=== PATIENT | female | born 1945 | race Caucasian/White ===

== ENCOUNTER → 2016-11-18 | Outpatient (CLI) | payer OTHER | LOC: FIMAGING 09:48 | PROVIDERS: ATTEND Family Medicine | DX: Z12.31 Encounter for screening mammogram for malignant neoplasm of breast (principal) | CPT/HCPCS: G0202 ==

== ENCOUNTER 2017-11-23 15:43 | Observation (INO) | payer OTHER ==
--- NOTE | 2017-11-23 16:12 | CPEKG ---
Heart Rate: 80 RR Interval: 750 P-R Interval: 188 QRSD Interval: 78 QT Interval: 344 QTC Interval: 397 P [place]: 46 QRS [place]: -2 T Wave [place]: 25 EKG Severity - NORMAL ECG - EKG Impression: SINUS RHYTHM Electronically Signed By: Starr Vu 23-Nov-2017 21:38:11
--- NOTE | 2017-11-23 16:17 | EDPHY ---
Addendum entered and electronically signed by Reinaldo Mg PAC 11/23/17 21:40 : This is a correction to first addendum. Dr. Zhao will provide consultation to the patient who is already admitted and in her bed on [address] [place] [address], not the emergency department. Addendum entered and electronically signed by Reinaldo Mg PAC 11/23/17 21:00 : 9:00 p.m. Notified by radiologist Dr. Gaston Diggs. We discussed the MRI findings. MRI brain is unremarkable. There is noted atrophy but no acute findings per Radiology. Cervical spine MRI does reveal C7 anterior wedge fracture as documented. At time of admission the patient was neurovascular intact. She was not in a C-collar because of this, but I have notified the hospitalist Dr. Bermeo. He will place the patient in a C-collar and I will discuss with Neurosurgery for consultation. 9:05 p.m. Case discussed with neurosurgeon Dr. Zhao. We discussed the patient's case and he will review her imaging and provide consultation in the emergency department. Original Note: General - History Smoking Status: Former smoker Time Seen by Provider: 11/23/17 16:03 Narrative: CHIEF COMPLAINT: difficult with speech HISTORY OF PRESENT ILLNESS: Patient complains of difficulty with her speech earlier today. This was at 11: 00 a.m.. She says she was trying to take a walk with her . She says that she "couldn't get the words out, and my said my lips looked funny. " She says she was aware of this but could not affects her speech. This lasted 15-20 minutes and then resolved. No chest pain. No headache. No fever or recent illness. She said she did fall and hit her head 10 days ago. She had some symptoms from this and has been taking ibuprofen and Tylenol. No headache preceding this. No neck pain or stiffness. No injury elsewhere. She had no chest pain at this time either. No previous TIA or CVA. She does not Recall if she has ever echocardiogram or No other associated complaints or modifying factors. REVIEW OF SYSTEMS: Ten systems reviewed and are negative unless otherwise noted in the HPI. PCP: Dr. Luli Grossman SPECIALISTS: Dr. Aponte PAST MEDICAL HISTORY: Celiac sprue, hypothyroid, fibromyalgia PAST SURGICAL HISTORY: No recent surgeries SOCIAL HISTORY: Quit smoking 44 years ago. No drug or alcohol use. Retired insurance worker FAMILY HISTORY: Noncontributory. No history of CVA in the family EXAMINATION General Appearance: Alert, no distress. Well-developed well-nourished Head: normocephalic, atraumatic Eyes: Pupils equal and round, no conjunctival pallor or injection. EOMS symmetric. No nystagmus or dysconjugate gaze ENT, Mouth: Mucous membranes moist. Uvula midline. Neck: Normal inspection, supple, non-tender Respiratory: Lungs are clear to auscultation. No wheezing, rhonchi or crackles Cardiovascular: Regular rate and rhythm. Systolic murmur. No JVD. Gastrointestinal: Abdomen is soft and nontender Back: non-tender, no bony abnormalities Neurological: GCS 15. A&O, nonfocal, strength is symmetric. No pronator drift. Normal finger to nose. NIH stroke scale is 0 Skin: Warm and dry, no rash. No petechiae Extremities: Nontender, no pedal edema Psychiatric: Mood and affect normal DIFFERENTIAL DIAGNOSES: Including but not limited to TIA, CVA, vertebrobasilar syndrome, intracranial hemorrhage, near-syncope, dizziness, dehydration, ACS MDM: 4:04 p.m. Possible TIA 11:00 a.m. today. Symptoms completely resolved 15 min later. She is awake and alert. No acute distress. Normal neuro examination at this time. NIH Stroke scale is 0 at time. Her vital signs are within normal limits. EKG is currently obtain. Laboratory studies and CT scan pending. I will discuss with Dr. Vu. 4:25 p.m. Case discussed with Dr. Vu. She will evaluate the patient 4:50 p.m. Notified by radiologist Dr. Rivera. CT scan of the head reveals no acute findings. Remainder of CT scan report reviewed by me. Laboratory studies are within normal limits including a negative point of care troponin. 5:25 p.m. Patient has been evaluated by Dr. Vu. Please see her documentation. She would like the patient to be admitted to the hospital. She has requested MRI of the brain and cervical spine. 5:33 p.m. Case discussed with hospitalist Dr. Bermeo. He will admit the patient to his service. She is admitted in stable condition. He is requesting a 3 North telemetry bed, observation status. He is aware that we have ordered MRIs of the brain and cervical spine. The patient will be transferred to the floor prior to MRI. EKG interpretation: Dr. Starr Vu/ SUPERVISION: Patient was evaluated and examined in conjunction with my secondary supervising physician as documented. We have both examined the patient. (Reinaldo Mg) - Diagnostics Imaging Results: Imaging Impressions Chest X-Ray 11/23/17 16:18 Impression: Mild cardiomegaly without failure. Nothing acute identified. Head CT 11/23/17 16:18 Impression: 1. No acute intracranial findings. If symptoms persist and clinical suspicion warrants, consider MRI. 2. Diffuse cerebral atrophy with periventricular and subcortical low attenuation consistent with chronic microvascular ischemic gliosis. Findings discussed with Reinaldo Mg 11/23/2017 at 16:41. Brain MRI 11/23/17 17:24 Impression: 1. Mild cerebral atrophy. 2. No acute infarct, acute hemorrhage, hydrocephalus, mass effect, or herniation. 3. Several nonspecific hyperintense T2/FLAIR signal abnormalities in the white matter of bilateral cerebral hemispheres and brainstem. Differential diagnosis includes moderate microvascular ischemic gliosis versus less likely postinfectious/postinflammatory sequela. Findings and recommendations discussed with Emergency Department Physician Bank Messenger, Reinaldo Mg PA-C, at 2025 hours, on November 23, 2017. Final report concurs with initial preliminary interpretation. Cervical Spine MRI 11/23/17 17:24 Impression: 1. C7 moderate compression fracture, with bone marrow edema, suggesting acute/ subacute fracture, without definite destructive mass. Consider follow-up nuclear medicine whole-body bone scan imaging if there is clinical concern for a pathologic fracture. 2. Multilevel mild to moderate degenerative disk disease from C3-C4 through C6- C7 resulting in mild central canal stenosis, without cord compression. 3. Please see above findings at specific disk levels. Findings and recommendations discussed with Emergency Department Physician, Reinaldo Mg PA-C, at 2106 hours, on November 23, 2017. Final report concurs with initial preliminary interpretation. Discussion: I evaluated and participated in the management of the patient. I also evaluated the patient independently. My co-signature indicates that I have reviewed this chart and I agree with the findings and plan of care as documented. My personal H&P findings include: HPI: Patient was working on her computer today, and began to have a sensation as if her head was floating. Then, she developed a cold sweat. She walked into her living room and sat down, at which point her odd sensation began to subside. Her came in and asked her what was wrong. When she tried to speak, her lips felt rubbery and heavy and she felt as if she was articulating well. Her states her speech seemed slurred. She believes this lasted about five minutes. She continued to feel "fuzzy" in her "spatial sense" following this. Currently, she feels well other than some fatigue. She denies chest pain or shortness of breath. 1.5 weeks ago, she fell off of her bed and struck the back of her head and has had headaches and neck ache ongoing since then. No LOC. Had numbness in her arms. This has since resolved. Has been taking Tylenol and Advil three times daily. She had been falling every three months due to a sensation of disorientation and visited her primary care provider. She has been taking many supplements since then and feels her symptoms have been generally resolved. No hypertension, hyperlipidemia, diabetes. Exam: VITAL SIGNS: Reviewed by me GENERAL: Well-developed, well-nourished, resting comfortably in no respiratory distress. HEENT: Atraumatic. Eyes: No icterus, no injection. Mouth: dry mucous membranes. No erythema or lesions. Neck: Supple. Nontender. LUNGS: Clear to auscultation bilaterally, no wheezes, rhonchi or rales. CARDIAC: Regular rate and rhythm, no rubs, murmurs or gallops. EXTREMITIES: No trauma. No edema. Range of motion is normal throughout. NEURO: Alert and oriented, cranial nerves 2-12 are intact. Sensation is intact to light touch throughout. Speech is fluent. Motor strength normal throughout. SKIN: Warm and dry, no rash. PSYCHIATRIC: Normal mentation, no agitation. ED Course: I discussed CT results with this patient, which were normal. I discussed admission for a complete TIA workup including carotid ultrasounds, school bus monitor, neurologist consult, possible MRI. She and her are comfortable with this plan. Patient had MRI of the brain and cervical spine ordered while in the emergency department. After her course was discussed with Dr. Bermeo the patient was transferred to the floor. MRI results were called to us after the patient had been transfer to the floor. MRI of the brain demonstrates no significant acute findings. MRI of the cervical spine demonstrates a C7 moderate compression fracture with bone marrow edema. Multilevel [id number] degenerative disc disease resulting in central canal stenosis but without significant cord compression. Patient's neurologic exam at the time of her admission was normal. MRI findings were discussed with neurosurgical PAKasi. Neurosurgery will consult. (Starr Vu) - Objective Vital Signs: Initial Vital Signs Temperature (C) 36.6 C 11/23/17 15:53 Heart Rate 90 11/23/17 15:53 Respiratory Rate 16 11/23/17 15:53 Blood Pressure 104/66 11/23/17 15:53 O2 Sat (%) 95 11/23/17 15:53 O2 Delivery Mode Room Air Allergies/Adverse Reactions: erythromycin base Allergy (Verified 11/23/17 15:51) Penicillins Allergy (Verified 11/23/17 15:51) povidone-iodine [From Betadine] Allergy (Verified 11/23/17 15:51) soap [From Betadine] Allergy (Verified 11/23/17 15:51) Home Medications: Medication Instructions Recorded Amitriptyline HCl [Elavil] 37.5 mg PO HS 11/23/17 Duloxetine HCl [Duloxetine HCl] 60 mg PO DAILY 11/23/17 Herbals/Supplements -Info Only 1 ea PO DAILY 11/23/17 Levothyroxine Sodium 50 mcg PO DAILY06 11/23/17 [Levothyroxine Sodium] Laboratory Results: Laboratory Results 11/23/17 16:10 11/23/17 16:10 11/23/17 11/23/17 11/23/17 16:35 16:10 16:10 WBC RBC Hgb Hct MCV MCH MCHC RDW Plt Count MPV Neut % (Auto) Lymph % (Auto) [place] % (Auto) Eos % (Auto) Baso % (Auto) Nucleat RBC Rel Count Absolute Neuts (auto) Absolute Lymphs (auto) Absolute Monos (auto) Absolute Eos (auto) Absolute Basos (auto) Absolute Nucleated RBC Immature Gran % Immature Gran # PT 12.6 SEC SEC (12.0-15.0) INR 0.92 (0.83-1.16) APTT 27.3 SEC SEC (23.0-38.0) Sodium Potassium Chloride Carbon Dioxide Anion Gap BUN Creatinine Estimated GFR Glucose Calcium POC Troponin I 0.00 ng/mL ng/mL (0.00-0.08) 11/23/17 11/23/17 16:10 16:10 WBC 9.44 10^3/uL 10^3/uL (3.80-9.50) RBC 4.02 10^6/uL L 10^6/uL (4.18-5.33) Hgb 13.5 g/dL g/dL (12.6-16.3) Hct 39.6 % % (38.0-47.0) MCV 98.5 fL fL (81.5-99.8) MCH 33.6 pg pg (27.9-34.1) MCHC 34.1 g/dL g/dL (32.4-36.7) RDW 13.4 % % (11.5-15.2) Plt Count 362 10^3/uL 10^3/uL (150-400) MPV 9.8 fL fL (8.7-11.7) Neut % (Auto) 60.1 % % (39.3-74.2) Lymph % (Auto) 28.4 % % (15.0-45.0) [place] % (Auto) 9.4 % % (4.5-13.0) Eos % (Auto) 1.1 % % (0.6-7.6) Baso % (Auto) 0.7 % % (0.3-1.7) Nucleat RBC Rel Count 0.0 % % (0.0-0.2) Absolute Neuts (auto) 5.67 10^3/uL 10^3/uL (1.70-6.50) Absolute Lymphs (auto) 2.68 10^3/uL 10^3/uL (1.00-3.00) Absolute Monos (auto) 0.89 10^3/uL H 10^3/uL (0.30-0.80) Absolute Eos (auto) 0.10 10^3/uL 10^3/uL (0.03-0.40) Absolute Basos (auto) 0.07 10^3/uL 10^3/uL (0.02-0.10) Absolute Nucleated RBC 0.00 10^3/uL 10^3/uL (0-0.01) Immature Gran % 0.3 % % (0.0-1.1) Immature Gran # 0.03 10^3/uL 10^3/uL (0.00-0.10) PT INR APTT Sodium 137 mEq/L mEq/L (135-145) Potassium 4.4 mEq/L mEq/L (3.3-5.0) Chloride 102 mEq/L mEq/L (97-110) Carbon Dioxide 26 mEq/l mEq/l (22-31) Anion Gap 9 mEq/L mEq/L (8-16) BUN 16 mg/dL mg/dL (7-23) Creatinine 0.7 mg/dL mg/dL (0.6-1.0) Estimated GFR > 60 Glucose 109 mg/dL H mg/dL (70-100) Calcium 9.8 mg/dL mg/dL (8.5-10.4) POC Troponin I Medications Given: Amitriptyline HCl (Elavil) 37.5 mg PO HS GINETTE Stop: 05/22/18 20:59 Last Admin: 11/23/17 21:07 Dose: 37.5 mg Aspirin Buffered (Aspirin Ec) 81 mg PO DAILY GINETTE Stop: 05/22/18 19:29 Last Admin: 11/23/17 21:07 Dose: 81 mg Point of Care Test Results: Chemistry 11/23/17 16:35 POC Troponin I 0.00 ng/mL ng/mL (0.00-0.08) Departure - Departure Disposition: [facility] Acute Clinical Impression: TIA (transient ischemic attack) Qualifiers: Transient cerebral ischemia type: unspecified Qualified Code(s): G45.9 - Transient cerebral ischemic attack, unspecified Closed head injury Qualifiers: Encounter type: initial encounter Qualified Code(s): S09.90XA - Unspecified injury of head, initial encounter Condition: Good
[2017-11-23 16:37] LABS: PLATELET COUNT 362 10^3/uL (150-400)
[2017-11-23] MEDS ORDERED: ACETAMINOPHEN 325 MG TAB PO PRN (17:44)
[2017-11-23] MEDS ORDERED: ONDANSETRON 4 MG/2 ML VIAL IVP PRN (17:44)
[2017-11-23] MEDS ORDERED: ONDANSETRON DISINTEGRATING 4 MG TAB PO PRN (17:44)
[2017-11-23 17:54] LABS: INR 0.92 (0.83-1.16); PROTIME(PATIENT) 12.6 SEC (12.0-15.0)
--- NOTE | 2017-11-23 19:16 | PDGENHP ---
History and Physical - Chief Complaint Acute dysarthria - History of Present Illness Primary care provider: Dr. Luli Grossman Primary ortho/pain: Dr. Aponte HPI: 72-year-old female presents with acute dysarthria characterized as slurred speech with onset of symptoms at 11:00 a.m. On the day of presentation and duration approximately 45 min thereafter. The patient's symptoms were particularly noted by her and he also noted some left upper extremity paresis; the patient reports that the symptoms have completely abated without intervention. They are occurring in the context of sustaining an associated mechanical fall approximately 10 days ago which resulted in head trauma. At the time of that fall, the patient reports left upper extremity paresthesia as well as resultant headache located in the posterior occiput, and the patient has been taking Tylenol and approximately 600 mg of Advil daily thereafter for symptom relief. She otherwise denies any recent headaches or recent migrainous disorder, but she does endorse that approximately 40 years ago during her she experienced left-sided facial paresthesia associated with migraines, presumably complex. She denies any recent fevers chills chest pain palpitations or shortness of breath. Her symptoms occurred today at rest and the patient reports that on the day prior to this presentation she had otherwise been feeling well. She ate breakfast on the morning of presentation and took all of her home medications. History Information - Allergies/Home Medication List Allergies/Adverse Reactions: erythromycin base Allergy (Verified 11/23/17 15:51) Penicillins Allergy (Verified 11/23/17 15:51) povidone-iodine [From Betadine] Allergy (Verified 11/23/17 15:51) soap [From Betadine] Allergy (Verified 11/23/17 15:51) Home Medications: Amitriptyline HCl [Elavil] 37.5 mg PO HS 11/23/17 [Last Taken 11/22/17] Duloxetine HCl [Duloxetine HCl] 60 mg PO DAILY 11/23/17 [Last Taken 11/23/17 08: 00] Herbals/Supplements -Info Only 1 ea PO DAILY 11/23/17 [Last Taken Unknown] Levothyroxine Sodium [Levothyroxine Sodium] 50 mcg PO DAILY06 11/23/17 [Last Taken 11/23/17] I have personally reviewed and updated: family history, medical history, social history, surgical history - Past Medical History fibromyalgia (With chronic falls occurring approximately every 3 months, reportedly mechanical) Additional medical history: Closed head trauma approximately 10 days ago with persistent posterior neck pain. Reported celiac disease. History of rib fracture. Osteoporosis. Hypothyroidism. Left ear cerumen impaction - Surgical History Reports: no pertinent surgical hx - Family History Additional family history: Mother with CVA at age 76, sibling with recurrent venous thromboembolism beginning in her late 60s - Social History Smoking Status: Former smoker Alcohol Use: Occasionally (1 alcoholic beverage on occasion) Drug Use: None Additional social history: Independent in her ADLs, prone to falls Review of Systems Review of Systems: ROS: 10pt was reviewed & negative except for what was stated in HPI & below Neurological: Reports: headache, other (Dysarthria) Physical Exam Physical Exam: Temp Pulse Resp BP Pulse Ox 36.5 C 80 16 124/67 H 94 11/23/17 17:47 11/23/17 17:47 11/23/17 17:47 11/23/17 17:47 11/23/17 17:47 Constitutional: no apparent distress, appears nourished, not in pain Eyes: PERRL, anicteric sclera, EOMI Ears, Nose, Mouth, Throat: moist mucous membranes, hearing normal, ears appear normal, no oral mucosal ulcers Cardiovascular: regular rate and rhythym, no murmur, rub, or gallop, No edema Respiratory: no respiratory distress, no rales or rhonchi, clear to auscultation Gastrointestinal: normoactive bowel sounds, soft, non-tender abdomen, no palpable masses Skin: warm, No abrasion, No rash Musculoskeletal: other (Full range of motion with very minimal posterior neck pain, no tenderness to palpation over the cervical paraspinal muscles or the trapezius) Neurologic: AAOx3, sensation intact bilaterally, CN II-XII Intact, No weakness ( Motor strength 5/5 bilateral upper and lower extremities), No facial droop Psychiatric: interacting appropriately, not anxious, not encephalopathic, thought process linear Lab Data & Imaging Review 11/23/17 16:10 11/23/17 16:10 WBC 9.44 10^3/uL (3.80-9.50) 11/23/17 16:10 RBC 4.02 10^6/uL (4.18-5.33) L 11/23/17 16:10 Hgb 13.5 g/dL (12.6-16.3) 11/23/17 16:10 Hct 39.6 % (38.0-47.0) 11/23/17 16:10 MCV 98.5 fL (81.5-99.8) 11/23/17 16:10 MCH 33.6 pg (27.9-34.1) 11/23/17 16:10 MCHC 34.1 g/dL (32.4-36.7) 11/23/17 16:10 RDW 13.4 % (11.5-15.2) 11/23/17 16:10 Plt Count 362 10^3/uL (150-400) 11/23/17 16:10 MPV 9.8 fL (8.7-11.7) 11/23/17 16:10 Neut % (Auto) 60.1 % (39.3-74.2) 11/23/17 16:10 Lymph % (Auto) 28.4 % (15.0-45.0) 11/23/17 16:10 [place] % (Auto) 9.4 % (4.5-13.0) 11/23/17 16:10 Eos % (Auto) 1.1 % (0.6-7.6) 11/23/17 16:10 Baso % (Auto) 0.7 % (0.3-1.7) 11/23/17 16:10 Nucleat RBC Rel Count 0.0 % (0.0-0.2) 11/23/17 16:10 Absolute Neuts (auto) 5.67 10^3/uL (1.70-6.50) 11/23/17 16:10 Absolute Lymphs (auto) 2.68 10^3/uL (1.00-3.00) 11/23/17 16:10 Absolute Monos (auto) 0.89 10^3/uL (0.30-0.80) H 11/23/17 16:10 Absolute Eos (auto) 0.10 10^3/uL (0.03-0.40) 11/23/17 16:10 Absolute Basos (auto) 0.07 10^3/uL (0.02-0.10) 11/23/17 16:10 Absolute Nucleated RBC 0.00 10^3/uL (0-0.01) 11/23/17 16:10 Immature Gran % 0.3 % (0.0-1.1) 11/23/17 16:10 Immature Gran # 0.03 10^3/uL (0.00-0.10) 11/23/17 16:10 PT 12.6 SEC (12.0-15.0) 11/23/17 16:10 INR 0.92 (0.83-1.16) 11/23/17 16:10 APTT 27.3 SEC (23.0-38.0) 11/23/17 16:10 Sodium 137 mEq/L (135-145) 11/23/17 16:10 Potassium 4.4 mEq/L (3.3-5.0) 11/23/17 16:10 Chloride 102 mEq/L (97-110) 11/23/17 16:10 Carbon Dioxide 26 mEq/l (22-31) 11/23/17 16:10 Anion Gap 9 mEq/L (8-16) 11/23/17 16:10 BUN 16 mg/dL (7-23) 11/23/17 16:10 Creatinine 0.7 mg/dL (0.6-1.0) 11/23/17 16:10 Estimated GFR > 60 11/23/17 16:10 Glucose 109 mg/dL (70-100) H 11/23/17 16:10 Calcium 9.8 mg/dL (8.5-10.4) 11/23/17 16:10 POC Troponin I 0.00 ng/mL (0.00-0.08) 11/23/17 16:35 TSH 0.251 uIU/mL (0.465-4.680) L 11/23/17 18:02 Visualized and Interpreted Chest x-ray results: Yes Chest X-Ray results: no infiltrate, other (Mild cardiomegaly) Visualized and Interpreted EKG results: Yes EKG Interpretation: Positive for: other (Normal sinus mechanism, ST depression isolated in lead V5) Assessment & Plan Assessment: 72-year-old female presenting with acute dysarthria and recent closed head injury Plan: 1. Dysarthria. Acute, new problem this provider, further workup indicated. Potential etiologies include TIA versus complex migraine versus nondescript symptoms associated with her fibromyalgia which seem to be in a fairly pervasive in the patient's life resulting in chronic instability, debility and falls -monitor on telemetry for arrhythmia -get brain MRI without contrast to rule out CVA, head CT without intracranial hemorrhage -get carotid and vertebral artery ultrasounds -get echocardiogram with bubble study, particularly since the patient experienced unilateral paresthesias approximately 40 years ago with , rule out PFO -get hemoglobin A1c, lipid panel for risk stratification -swallow eval completed, okay to advance to regular diet -initiate on aspirin 81 mg daily for primary or secondary prevention, depending on results of above -get Neurology consultation in a.m. 2. Recurrent falls. Patient with recent closed head injury, no apparent trauma or fracture, will be getting neck imaging to verify no overt fracture given her elevated 10 year fracture risk of 19% per review of outside records from 2015 DEXA scan read by Dr. Kamaljit Shen demonstrating no change in her osteoporosis over 3 and half years but with elevated fracture risk -get PT and OT assessments, patient may significantly benefit from outpatient ongoing physical therapy moving forward -continue her supplements which have been recommended by Dr. Aponte, and the patient believes that they have been beneficial in so far as her instability, debility 3. Hypothyroidism. Patient is currently well supplemented with her TSH level less than 1 Diet. Regular Prophylaxis. High risk patient, Lovenox 40 Code. Full Disposition. Anticipated discharge is 11/24, pending further workup as outlined above. I have discussed patient's presentation with Reinaldo Mg, emergency department provider, he and I both agree the patient warrants urgent neurologic workup as outlined above, given her risk factors and propensity for falls.
[2017-11-23] MEDS ORDERED: AMITRIPTYLINE HCL 25 MG TAB PO SCH (21:00)
[2017-11-23] MEDS: ASPIRIN EC 81 MG TAB PO SCH (21:07)
[2017-11-24] MEDS ORDERED: LEVOTHYROXINE 50 MCG TAB PO SCH (06:00)
[2017-11-24] MEDS: ASPIRIN EC 81 MG TAB PO SCH (07:34)
--- NOTE | 2017-11-24 08:09 | NEUSURGPN ---
Assessment/Plan: Assessment: 72 yr old s/p fall 11 days ago with C7 compression fracture Plan: Please see full dictated consult when available Patient was seen and examined by Dr Zhao this morning MRI cervical with contrast to eval fracture, pathologic? Patient is neuro intact Consult Parts Technician to fit with [place] collar Alejandrina collar ok for shower PT/OT Please call neurosurgery with any questions/concerns Subjective: Posterior neck pain extends into left scapula, no other complaints Objective: AxO x3 Facial symmetry CN2-12 grossly intact 5/5 BUE, BLE Ambulating in room without difficulty Wearing [place] J collar Neuro Check Frequency: per routine Urinary Catheter in Place: No - Physician Discussed Patient with Dr.: Zhao Patient Seen by Dr.: Zhao Neurosurgery Physical Exam - Vitals, I&O, Labs I and O 11/23/17 11/24/17 11/25/17 05:59 05:59 05:59 Intake Total 850 Output Total 500 Balance 350 Weight 71.668 kg 71.668 kg Intake: Oral (ml) 850 IV Infused (ml) 0 Output: Urine (ml) 500 Toilet 500 Other: Number of Voids 1 Toilet 2 Vital Signs Temp Pulse Resp BP Pulse Ox 36.5 C 90 16 133/68 H 96 11/24/17 07:41 11/24/17 07:41 11/24/17 07:41 11/24/17 07:41 11/24/17 07:41 ICD10 Worksheet Patient Problems: Problems Problem Status Onset Closed head injury Acute TIA (transient ischemic attack) Acute
--- NOTE | 2017-11-24 08:42 | HOSPPROG ---
Hospitalist Progress Note Assessment/Plan: Iman Archer is a 72 y/o patient who presented with slurred speech on November 23 at 11 a.m. Symptoms resolved. She had a mechanical fall approximately 10 days ago with head trauma. *Dysarthria -TIA vs other neurologic concern -neurology to see -Imaging doesn't show anything acute, carotid doppler shows no flow limiting stenosis -in sinus -patient doesn't want a statin for elevated LDL *C7 compression fx -evaluated by neurosurgery *recurrent falls -had some problems w wax build up in her left ear that was removed -has seen Dr Aponte for this and was placed on multiple supplements *hypothyroidism -TSH is 0.251 -should get a repeat TSH in 6 weeks, may need Synthroid dose adjusted *Plan: will await for neurology to see, getting another MRI with contrast for further evaluation, likely dc this afternoon if ok with both specialties. Subjective: Iman is feeling fine, has no specific complaints. Dysarthria has resolved. Objective: Vital Signs Temp Pulse Resp BP Pulse Ox 36.5 C 90 16 133/68 H 96 11/24/17 07:41 11/24/17 07:41 11/24/17 07:41 11/24/17 07:41 11/24/17 07:41 11/23/17 11/24/17 11/25/17 05:59 05:59 05:59 Intake Total 850 Output Total 500 Balance 350 PT 12.6 SEC (12.0-15.0) 11/23/17 16:10 INR 0.92 (0.83-1.16) 11/23/17 16:10 - Physical Exam Constitutional: no apparent distress, appears nourished, not in pain Eyes: PERRL Ears, Nose, Mouth, Throat: hearing normal Cardiovascular: regular rate and rhythym Respiratory: no respiratory distress Skin: warm Musculoskeletal: full muscle strength Neurologic: AAOx3, facial droop Psychiatric: interacting appropriately, not anxious, not encephalopathic, thought process linear ICD10 Worksheet Patient Problems: Problems Problem Status Onset Closed head injury Acute TIA (transient ischemic attack) Acute
[2017-11-24] MEDS ORDERED: DULoxetine 60 MG CAP PO SCH (09:00)
[2017-11-24] MEDS ORDERED: Herbals/Supplements -Info Only PO SCH (09:00)
[2017-11-24] MEDS ORDERED: ENOXAPARIN 40 MG/0.4 ML SYR SC SCH (09:00)
--- NOTE | 2017-11-24 09:22 | GCON ---
[f rep st] CONSULTATION INPATIENT CONSULTATION CHIEF COMPLAINT: C7 compression fracture. HISTORY OF PRESENT ILLNESS: The patient is a 72-year-old female who presented to the emergency department yesterday with acute dysarthria with slurred speech and numbness around her lips. The patient states that these symptoms resolved on their own and currently is asymptomatic. The patient suffered a fall approximately 11 days ago, which did result in head trauma. Patient reports at the time of her fall, she had some left upper extremity paresthesias as well as a headache. CT of the head was performed as well as imaging of the cervical spine. Patient denies any upper extremity weakness, any balance instability. Patient does note some posterior neck pain that radiates into her left scapula. The patient is otherwise neurologically intact at this time. We are consulted to evaluate the patient due to a C7 compression fracture found on the MRI. REVIEW OF SYSTEMS: A 10-point review of systems was performed and negative aside from what was mentioned in the HPI. ALLERGIES: Erythromycin, penicillin, povidone iodine, and soap from Betadine. HOME MEDICATIONS: Amitriptyline 37.5 mg p.o. q.h.s., duloxetine 60 mg p.o. daily, herbal supplements 1 daily, levothyroxine 50 mcg p.o. daily. PAST MEDICAL HISTORY: 1. Fibromyalgia. 2. Celiac disease. 3. History of rib fracture. 4. Osteoporosis. 5. Hypothyroidism. 6. Left ear cerumen impaction. SURGICAL HISTORY: Patient denies any past surgical history. FAMILY HISTORY: Patient's mother had a CVA at the age of 76. Sibling with recurrent venous thromboembolism that started in her late 60s. SOCIAL HISTORY: Patient is a former smoker. Does not currently use nicotine products. The patient drinks approximately 1 alcoholic beverage socially. The patient denies any illicit drug use. Denies any marijuana. The patient lives independently. Is prone to falls. LABORATORY RESULTS: White blood cell count 9.44, hemoglobin 13.5, hematocrit 39.6, platelets 362. PT 12.6, INR 0.92, APTT is 27.3. Sodium 137, potassium 4.4, BUN 16, creatinine 0.7, glucose 109, hemoglobin A1c 5.8, TSH 0.251. DIAGNOSTIC IMAGING: CT of the brain performed without contrast on November 23, 2017 , demonstrates no acute intracranial findings with diffuse cerebral atrophy and findings consistent with microvascular ischemic gliosis. MRI of the brain performed without contrast on November 23, 2017, demonstrates mild cerebral atrophy, no acute infarct, or acute hemorrhage, hydrocephalus, mass-effect, or herniation. Severe nonspecific hyperintense T2 FLAIR signal abnormalities, bilateral cerebral hemispheres and brainstem which could indicate microvascular ischemic gliosis versus likely postinfectious postinflammatory sequela. MRI of the cervical spine performed without contrast on November 23, 2017, demonstrates a C7 moderate compression fracture with bone marrow edema suggesting acute versus subacute fracture without definite destructive mass. Multilevel degenerative disk disease from C3-C4 and C6-C7 resulting in mild central canal stenosis without cord compression. PHYSICAL EXAM: VITAL SIGNS: Blood pressure 133/68. Heart rate is 90. Respiratory rate is 16, oxygen saturation 96% on 1 L nasal cannula. Temperature 36.5 degrees Celsius. HEENT: Head is normocephalic and atraumatic. Pupils are equal, round, and reactive to light. EOMI is intact. Full visual jimenez by confrontation. NECK: The patient is wearing a hard cervical collar and notes some tenderness in the posterior cervical spine. ABDOMEN: Deferred. GENITOURINARY/RECTAL: Deferred. NEUROLOGIC: Patient is awake and alert, oriented to name, place, location, date, time, and situation. Her memory is intact to immediate past and current events. Speech: No aphasia or dysphonia. Cranial nerves 2-12 are grossly intact. Patient has 5/5 strength in all muscle groups in the bilateral upper and lower extremities to include deltoids, biceps, triceps, brachioradialis, wrist flexion, extensors, bulb inspector, intrinsic fingers, iliopsoas, quadriceps, hamstrings, plantarflexion, dorsiflexion, EHL testing. Sensation is grossly intact to light touch throughout all dermatomal distributions of bilateral upper and lower extremities. The patient is ambulating in the hospital room without difficulty. Reflexes biceps, triceps, brachioradialis, knee jerk and ankle jerk are 2+ out of 4. Toes are downgoing bilaterally. Linda sign is negative bilaterally. There is no evidence of clonus. ASSESSMENT AND PLAN: Patient is a 72-year-old female who reportedly fell approximately 11 days ago, suffering a head injury. CT of the brain was negative for intracranial abnormalities. MRI of the cervical spine was found to have an acute versus subacute compression fracture of C7. There was a question of pathological reasons of the compression fracture. Therefore, we will get an MRI with contrast of the cervical spine for further evaluation. At this time, we will have the patient continue to wear a hard collar. She is currently wearing a Dardanelle J collar, which is not comfortable for her. We will consult Count Team Member to fit her with an [place] collar. The patient is neurologically intact at this time. We will await the results of the MRI cervical with contrast for further plan. Patient was seen and examined by myself and Dr. Zhao in the hospital room this morning, November 24, 2017, at 0700. Please call Neurosurgery with any questions and concerns. NEUROSURGERY STAFF: I have seen and evaluated the patient and I agree with the above note by the PA. Low Zhao MD /[id number]/MODL MTDD
[2017-11-24] MEDS ORDERED: GADOBUTROL 10 ML VIAL IVP ONE (10:28)
--- NOTE | 2017-11-24 11:28 | GCON ---
[f rep st] CONSULTATION NEUROLOGY CONSULT REFERRING PHYSICIAN: Anurag Bermeo MD CHIEF COMPLAINT: Transient neurologic symptoms. HISTORY OF PRESENT ILLNESS: The patient is a very pleasant 72-year-old lady who has a history of a remote complex migraine history some 40 years ago while she was , with left-sided facial paresthesias. More recently, she has been having some mechanical falls and fell, with cervical spine injury and bilateral arm numbness transiently and question concussion about a week ago. She also had a significant cerumen disimpaction in her left ear that was apparently clogged for "1 year" a few days ago as well. She then had an episode yesterday of having a visual disturbance where the visual field "jiggled" from [id number], followed by a cold sweat through her body. She then felt some paresthesias in a perioral bilateral distribution where her lips felt like plastic or rubber, and the symptoms then all quickly resolved without any significant headache. Her felt like she had slurred speech. She mainly felt the numbness around her lips bilaterally. There were no lateralizing symptoms, such as one-sided weakness, numbness. No cognitive symptoms or aphasia. REVIEW OF SYSTEMS: Review of systems was done, a 10-point was done, only pertinent to the HPI. For past medical history, social history, family history, surgical history, and home medications, please see Dr. Bermeo's H and P. PHYSICAL EXAM: VITAL SIGNS: Blood pressure 120/67, temperature 36.5, pulse 80. GENERAL: The patient is very pleasant, no acute distress. NEUROLOGIC: Higher mental function: She is awake and alert. No aphasia. She is lucid. Cranial nerve exam is normal, 2 through 7 and 12. Motor exam: She has normal strength and tone throughout. Sensory exam normal to light touch throughout. Coordination normal. IMPRESSION AND PLAN: 1. Transient neurologic symptoms, resolved 2. Remote history of complex migraine The patient's presentation is not clear. She did not present with a typical transient ischemic attack symptomatology. MRI brain showed no acute stroke and age-related changes. No mass lesions. Doppler of the carotid arteries showed no evidence of flow-limiting carotid stenosis. No significant atherosclerotic disease. She does have a compression fracture at C7 presumably from her recent fall that Neurosurgery is managing. I think going forward, the patient should start a baby aspirin daily for general vascular prophylaxis. I would recommend she follow up with Cardiology for an ECG monitor study to exclude any paroxysmal atrial fibrillation. I will also arrange followup with me to review all of the above. These symptoms may represent a migrainous phenomenon in the setting of recent concussion or vestibular changes from her cerumen disimpaction. As mentioned above, ultimately, the diagnosis is not clear as the symptoms were fairly nonspecific as she tells them to me. We will look forward to seeing her as an outpatient. We will continue to follow this patient in the hospital as needed. Please do not hesitate to call with any questions or change in neurologic status with her. Thank you for the consultation. Seventy total minutes floor time reviewing records, imaging, labs, direct counseling with the patient and coordination of care. /[id number]/MODL MTDD
[2017-11-24 11:42] VITALS: BP 113/65
--- NOTE | 2017-11-24 13:43 | ECHO ---
[email or web address] [address] Main: [phone] Fax: Transthoracic Echocardiogram Name: LIZ WATSON MR#: [id number] Study Date: 11/24/2017 Study Time: 12:47 PM Date of : 1945 Age: 72 year(s) Height: 165.1 cm (65 in.) Weight: 71.67 kg (158 lb.) BSA: 1.79 m2 Gender: Female Examination: Echo Indication: TIA Image Quality: Adequate Contrast: Requested by: Anurag Bermeo BP: 113 mmHg/65 mmHg Heart Rate: Rhythm: Indication: TIA Procedure Staff Clip Riveter: Isatu Siddiqi [facility] Reading Physician: Can Hua MD Requesting Provider: Conclusions: Normal size left ventricle. Normal global systolic LV function. EF is 69 %. No regional wall motion abnormality. Diastolic dysfunction is present. . An agitated saline study was performed and was negative for intracardiac shunting. Mild mitral valve regurgitation is present. Aortic sclerosis is present. Trivial tricuspid valve regurgitation. The pulmonary artery pressure is normal. Measurements: Chambers Valvular Assessment AV/MV Valvular Assessment TV/PV Normal Normal Normal Name Value Range Name Value Range Name Value Range Ao Amaya (2D): 2.3 cm (1.4 cm-2.6 AV Vmax: 1.55 m/s (1 m/s-1.7 PV Vmax: 0.96 m/s (0.6 m/s-0.9 cm) m/s) m/s) IVSd (2D): 1.1 cm (0.6 cm-1.1 AV maxP mmHg ( - ) PV PGmax: 4 mmHg ( - ) cm) AV meanP mmHg ( - ) LVDd (2D): 3.5 cm (3.9 cm-5.3 JOEL (VTI): 2.5 cm ( - ) cm) MV E Vmax: 0.66 m/s ( - ) LVDs (2D): 2.6 cm (2.1 cm-4 MV A Vmax: 0.99 m/s ( - ) cm) MV E/A: 0.67 ( - ) LVPWd (2D): 1.1 cm ( - ) MV PHT: 0.043 s ( - ) LVOTd 1.9 cm 1.9 cm mm MVA (PHT): 5.1 s ( - ) LVEF (BP): 69 % (>=55 %) RVDd(2D): 3.2 cm (1.9 cm-3.8 cmmm) Continued Measurements: Patient: LIZ WATSON Study Date: 11/24/2017 Page 1 of 2 12:47 PM Chambers Valvular Assessment AV/MV Valvular Assessment TV/PV Name Value Name Value Name Value LADs: 3.1 cm MV DecTime: 165 m/s CVP (est.): 5 mmHg LADs Lon.6 cm MV E' Septal: 0.09 m/s LA Area: 11.9 cm2 MV E/E' Septal: 7.60 LA Volume: 31 ml MV E/E' Lateral: 8.10 LA Volume Index: 17.3 ml/m2 RA Area: 10.0 cm2 Additional Vessels Name Value Ao Ascendin.6 cm Inferior Vena Cava: 1.1 cm Findings: Left Ventricle: Normal size left ventricle. No LV hypertrophy. Normal global systolic LV function. EF is 69 %. No regional wall motion abnormality. Diastolic dysfunction is present. . Right Ventricle: Normal size right ventricle. Normal RV function. Left Atrium: The left atrium is normal in size. An agitated saline study was performed and was negative for intracardiac shunting. Right Atrium: The right atrium is normal in size. Mitral Valve: The mitral valve is normal in appearance and function. Mild mitral valve regurgitation is present. No mitral stenosis is present. Aortic Valve: The aortic valve is normal in appearance and function. Aortic sclerosis is present. There is no significant aortic valve regurgitation. No aortic valve stenosis is present. Tricuspid Valve: The tricuspid valve is normal in appearance and function. Trivial tricuspid valve regurgitation. The pulmonary artery pressure is normal. Pulmonic Valve: The pulmonic valve is normal in appearance and function. There is no pulmonic regurgitation seen. Aorta: The aorta is normal. Normal size aortic root measuring 2.3 cm. Normal size ascending aorta measuring 2.6 cm. IVC: The IVC is normal sized. Pericardium: No pericardial effusion. No pleural effusion. Exam Comments: Patient has breast implants, limited acoustic windows. (No Signature Object) Patient: LIZ WATSON Study Date: 11/24/2017 Page 2 of 2 12:47 PM [id number]
--- NOTE | 2017-11-24 16:13 | GDS ---
[f rep st] DISCHARGE SUMMARY DISCHARGE DIAGNOSES: 1. Transient neurologic symptoms. 2. C7 compression fracture. 3. Recurrent falls. 4. Hypothyroidism. CONSULTATION: 1. Dr. Ethan Dugan with Neurology. 2. Pushpa Murray, physician assistant food service manager with neurosurgical services. HISTORY OF PRESENT ILLNESS: Briefly, the patient is a 72-year-old woman who has a history of multipl e falls. She has a remote history of complex migraine history. Most recently, she has been falling and sustained a cervical spine injury and bilateral arm numbness that was transient approximately a w red cliff ago. She also describes that her left ear was clogged and had wax removed recently. She was at home, she had a cold sweat, felt like things were spinning around, and her thought she had sl urred speech. She was brought to the emergency room for further evaluation. She had an MRI, which did not show any acute stroke. She had Doppler of the carotid arteries that sh owed no evidence of flow-limiting carotid stenosis. It was noted that she had a compression fracture at C7, likely from recurrent falls, and she was followed by Neurosurgery who has recommending that s he wear a collar at all times and further follow up with them in the outpatient setting. Today, her symptoms have resolved. She is feeling markedly better. She will further follow up with Neurosurgery, as well as Dr. Ethan Dugan. HOSPITAL COURSE: 1. Transient neurologic symptoms. They resolved. Her telemetry shows that she is in sinus rhythm. Recommendation is to stay on a baby aspirin. 2. C7 compression fracture. Further follow up with Neurosurgery, to wear her collar at all times. 3. Recurrent falls. She felt that this may be secondary after she had some wax buildup. She sees John Aponte. She said when she was placed on multiple supplements, she did not have any further falling . She will resume this. 4. Hypothyroidism. Her TSH is low at 0.251. Recommend that she get this rechecked in 6 weeks. DISCHARGE CONDITION: Stable. Blood pressure is 113/65, heart rate of 85, respiratory rate 13, O2 sa ts on room air 93%, temperature 36.7 Celsius. DISCHARGE MEDICATIONS: Please see the EMR. DISCHARGE INSTRUCTIONS: 1. To wear her hard collar at all times. It is okay to wear the Alejandrina collar in the shower. 2. No lifting greater than 10 pounds. 3. Follow up with Dr. Dugan this week. 4. Also, recommendation is for her to follow up with Cardiology to get a Holter monitor to rule out any arrhythmias, atrial fibrillation. 5. If she has any stroke-like symptoms, return to the emergency room. /[id number]/MODL
--- NOTE | 2017-11-24 16:19 | ASMTCMCOM ---
CM Note CM Note Notes: Pt in for TIA, closed head injury and was found to have C7 compression fx. Pt medically stable for d/c, no CM d/c needs identified. Pt to follow up outpatient with neurology and neurosurgery. Date Signed: 11/24/2017 04:19 PM Electronically Signed By:JAYLAN Palacio
== END 2017-11-24 16:38 | disposition home or self-care (01) ==
LOC: F3N 18:37
PROVIDERS: ADMIT Internal Medicine; ATTEND Internal Medicine
DX: S12.9XXA Fracture of neck, unspecified, initial encounter (principal); R29.818 Other symptoms and signs involving the nervous system; R29.6 Repeated falls; E03.9 Hypothyroidism, unspecified; M79.7 Fibromyalgia; K90.0 Celiac disease; Z87.891 Personal history of nicotine dependence; M81.0 Age-related osteoporosis without current pathological fracture
CPT/HCPCS: 70450; 70551; 71045; 72141; 72142; 93005; 93306; 93880; 97161; 97166; A9585; G0378; G8978; G8979; G8987; G8988; J1650; 84484-PO

== ENCOUNTER → 2017-12-04 | Outpatient (CLI) | payer OTHER | LOC: FIMAGING 13:53 | PROVIDERS: ATTEND Physical Medicine & Rehabilitation | DX: Z13.820 Encounter for screening for osteoporosis (principal); M81.0 Age-related osteoporosis without current pathological fracture ==

== ENCOUNTER → 2018-02-03 | Outpatient (CLI) | payer OTHER | DX: M54.2 Cervicalgia (principal) ==